=== PATIENT | female | born 1975 | race Two or more races ===

== ENCOUNTER 2019-01-24 14:31 | Emergency (ER) | payer OTHER ==
[2019-01-24] MEDS ORDERED: DEXAMETHASONE SOD PHOSPHATE 10 MG/1 ML VIAL IM ONE (14:36)
[2019-01-24] MEDS ORDERED: RANITIDINE HCL 150 MG/10 ML UNIT-DOSE PO ONE (14:36)
--- NOTE | 2019-01-24 14:36 | PDOC ---
Rapid Medical Evaluation Medical Evaluation: I have performed a brief in-person evaluation of this patient. The patient presents with a chief complaint of: s/p bit of bee around 40 minutes ago; now broke out into rash along face and c/o congestion; took 50 mg of benadryl prior to coming Pertinent physical exam findings: in no respiratory distress, lungs clear I have ordered the following: steroids, zantac The patient will proceed to the ED for further evaluation. 01/24/19 14:33
[2019-01-24 14:37] VITALS: BP 141/69; PULSE 104; TEMP 98.1; BMI 30.7
[2019-01-24] MEDS ORDERED: RANITIDINE HCL 150 MG TABLET (FP) ONE (14:53)
[2019-01-24] MEDS ORDERED: RANITIDINE HCL 150 MG TABLET (FP) PO ONE (15:05)
--- NOTE | 2019-01-24 16:31 | PDOC ---
Attending Attestation - Resident Resident Name: Kamran Glover - ED Attending Attestation I have performed the following: I have examined & evaluated the patient, The case was reviewed & discussed with the resident, I agree w/resident's findings & plan - HPI HPI: 01/24/19 16:27 43-year-old healthy female with history of known ALLERGY to bee stings presents with rash and facial swelling following bee sting 2 today. Patient was stung in the left hip and buttock, after about 45 minutes began developing tingling around her lips she took Benadryl, and presented for evaluation secondary to persistent itching and lip swelling. Never had difficulty speaking or swallowing or breathing, or chest tightness or wheezing. No history of anaphylaxis, her symptoms have been restricted to urticaria and skin rashes. - Physicial Exam PE: 01/24/19 16:29 vss, heart rate 80 on my exam seated comfortably in stretcher, no swelling, speech clear, airway patent without stridor lungs clear, no wheeze skin clear - Medical Decision Making 01/24/19 16:30 43-year-old female with history of ALLERGY to bee stings presents with urticaria following bee sting. Received Benadryl at home, received Decadron and Zantac upon arrival. Never had acute airway or respiratory issues. 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
--- NOTE | 2019-01-24 16:42 | PDOC ---
History of Present Illness - General Chief Complaint: Bite Stated Complaint: BEE STING ALLERGIC REACTION Time Seen by Provider: 01/24/19 14:33 History Source: Patient Exam Limitations: No Limitations - History of Present Illness Initial Comments: 01/24/19 17:02 Source: Patient and partner HPI: 43yo woman with no PMH presenting after 2x bee stings on her left thigh and buttock while cleaning the yard. Occurred approximately 1.5 hours before arrival and resulted in immediate local swelling and pain. 1 hour [employer] the patient began to experience whole body puritis that was unrelieved by 50mg of Benadryl. She became worried that she didn't experience relief and presented to the department. PMH: denies PSH: denies All: NKDA, bee stings Meds: denies SHx: no smoking, ETOH, or illicits Past History - Travel Traveled outside of the country in the last 30 days: No Close contact w/someone who was outside of country & ill: No - Past Medical History Allergies/Adverse Reactions: Allergies Allergy/AdvReac Type Severity Reaction Status Date / Time No Known Allergies Allergy Verified 01/24/19 14:37 Home Medications: Ambulatory Orders Epinephrine [Epipen 2-Oswaldo] 0.3 mg IJ ASDIR #1 kit 01/24/19 Prednisone [Prednisone 50 MG TABLETS] 20 mg PO TID #15 tablet 01/24/19 COPD: No - Suicide/Smoking/Psychosocial Hx Smoking History: Never smoked Information on smoking cessation initiated: No Hx Alcohol Use: No Drug/Substance Use Hx: No Review of Systems - Review of Systems Able to Perform ROS?: Yes Is the patient limited Mosotho proficient: No Constitutional: No: Symptoms Reported HEENTM: No: Symptoms Reported Respiratory: No: Symptoms reported, Shortness of Breath, Stridor, Wheezing Cardiac (ROS): Yes: Symptoms Reported ABD/GI: Yes: Symptoms Reported : Yes: Symptoms Reported Musculoskeletal: Yes: Symptoms Reported Integumentary: Yes: See HPI Neurological: Yes: Symptoms reported All Other Systems: Reviewed and Negative *Physical Exam - Vital Signs Last Vital Signs Temp Pulse Resp BP Pulse Ox 98.1 F 104 H 19 141/69 98 01/24/19 14:35 01/24/19 14:35 01/24/19 14:35 01/24/19 14:35 01/24/19 14:35 - Physical Exam Comments: 01/24/19 17:06 Vitals: vitals reviewed, AFVSS Gen: WDWN woman, no acute distress, laying in bed on her left side HEENT: NCAT, EOMI, MMM, mallampati class 1 CV: RRR, nl s1/s2, no murmurs Pulm: CTABL, no wheezes rales or rhonchi, good air movement, normal WOB Abd: soft, nontender, nondistended Skin: No rash, warm, dry Ext: left rear thigh, two 5-6in diameter indurations with erythema, swelling, local edema, no surrounding rash, painful to palpation Pulses: 2+ radial and PT ED Treatment Course - Medications Given in the ED: ED Medications Discontinued Medications Generic Name Dose Route Start Last Admin Trade Name Shivq PRN Reason Stop Dose Admin Dexamethasone Sodium Phosphate 10 mg 01/24/19 14:36 01/24/19 15:13 Decadron Injection - IM 01/24/19 14:37 10 mg ONCE ONE Administration Ranitidine HCl 150 mg 01/24/19 14:36 01/24/19 15:15 Zantac Oral Solution - PO 01/24/19 14:37 Not Given ONCE ONE Ranitidine HCl 150 mg 01/24/19 15:05 01/24/19 15:13 Zantac - PO 01/24/19 15:06 150 mg ONCE ONE Administration Medical Decision Making - Medical Decision Making 01/24/19 15:00 43yo woman with local site reaction to bee stings s/p 50mg benadryl at home. Minimal concern for anaphylaxis given no prior reactions, clinical exam, stable. -Decadron 10 IM -Zantac PO Watched for 1.5 hours. Puritis improvement with steroids. -PO steroids 60 daily for 5 days -2Pk Epi Pens with one refill Dispo: home with return precautions *DC/Admit/Observation/Transfer Diagnosis at time of Disposition: Allergic reaction Qualifiers: Encounter type: initial encounter Qualified Code(s): T78.40XA - Allergy, unspecified, initial encounter - Discharge Dispostion Disposition: HOME Condition at time of disposition: Improved Decision to Admit order: No - Prescriptions Prescriptions: Epinephrine [Epipen 2-Oswaldo] 0.3 mg IJ ASDIR #1 kit Prednisone [Prednisone 50 MG TABLETS] 20 mg PO TID #15 tablet - Referrals Referrals: Tank Anders [Primary Care Provider] - - Patient Instructions Printed Discharge Instructions: DI for Insect Bites and Stings Additional Instructions: You were seen for a reaction to a bee sting. You were given steroids which helped with your symptoms. If you have any difficulty breathing or other concerning findings you should return to the emergency room. We have prescribed you a steroid to take for the next 5 days and an epi pen to carry with you at all times in case of future stings and interactions. - Post Discharge Activity
== END 2019-01-24 17:01 | disposition home or self-care (01) ==
LOC: JER 14:31
PROC: 3E0233Z Introduction of Anti-inflammatory into Muscle, Percutaneous Approach (ICD-10-PCS; principal; 2019-01-24)
DX: T63.441A Toxic effect of venom of bees, accidental (unintentional), initial encounter (principal); L50.8 Other urticaria; Y92.017 Garden or yard in single-family (private) house as the place of occurrence of the external cause; Z91.030 Bee allergy status
CPT/HCPCS: 99282-25; J1100

== ENCOUNTER 2021-05-11 00:33 | Emergency (ER) | payer OTHER ==
[2021-05-11 01:06] VITALS: BP 124/65; TEMP 97.9; BMI 32.9
[2021-05-11] MEDS ORDERED: diphenhydrAMINE HCL 25 MG CAPSULE (FP) PO ONE ×2 (01:09→01:18)
[2021-05-11] MEDS ORDERED: FAMOTIDINE 20 MG/50 ML IVPB 20 MG/50 ML MG IVPB ONE (01:09)
[2021-05-11] MEDS ORDERED: SODIUM CHLORIDE 0.9% 500 ML INFUS.BAG IV ONE (01:09)
[2021-05-11] MEDS ORDERED: ONDANSETRON 4 MG/2 ML VIAL IVPUSH ONE (01:09)
[2021-05-11] MEDS ORDERED: FAMOTIDINE 20 MG TABLET PO ONE (01:17)
[2021-05-11] MEDS ORDERED: ONDANSETRON *ODT* 4 MG TABLET SL ONE (01:17)
[2021-05-11] MEDS ORDERED: ONDANSETRON *ODT* 4 MG TABLET ONE (01:19)
[2021-05-11] MEDS ORDERED: FAMOTIDINE 20 MG TABLET ONE (01:19)
[2021-05-11] MEDS ORDERED: DEXAMETHASONE SOD PHOSPHATE 10 MG/1 ML VIAL IM ONE (01:26)
[2021-05-11] MEDS ORDERED: DEXAMETHASONE SOD PHOSPHATE 10 MG/1 ML VIAL ONE (01:32)
== END 2021-05-11 02:12 | disposition home or self-care (01) ==
LOC: JER 00:33
PROC: 3E0233Z Introduction of Anti-inflammatory into Muscle, Percutaneous Approach (ICD-10-PCS; principal; 2021-05-11)
DX: L50.0 Allergic urticaria (principal); T78.40XA Allergy, unspecified, initial encounter
CPT/HCPCS: 93005; 93010; 99284-25; J1100; Q0162